=== PATIENT | male | born 1955 | race Caucasian/White ===

== ENCOUNTER 2016-03-20 17:14 | Emergency (ER) | payer BC ==
[2016-03-20] MEDS ORDERED: ONDANSETRON HCL/PF 2 MG/ML VIAL IV ONE (18:07)
[2016-03-20] MEDS ORDERED: NORMAL SALINE 1,000 ML IV PRN (18:07)
[2016-03-20] MEDS ORDERED: MORPHINE SULFATE 4 MG/ML SYRG IV ONE (18:07)
--- NOTE | 2016-03-20 18:17 | ERNOTE ---
Lower Extremity HPI - Narrative Date of Service: 03/20/16 - General Lower Extremities Pain: 2nd toe: right Time Seen by Provider: 03/20/16 17:41 Source: patient Exam Limitations: no limitations - Immun/Allergies/Home Medications Immunizations: IMMUNIZATION HX History of Influenza Vaccine No Hx Pneumococcal Vaccination No Allergies/Adverse Reactions: Allergies Allergy/AdvReac Type Severity Reaction Status Date / Time No Known Allergies Allergy Unverified 03/20/16 17:33 Home Medications: HOME MEDICATIONS Hydrocodone/Acetaminophen [Campbell 7.5-325 Tablet] 1 each PO Q6H #20 tablet [Last Taken Unknown] - History of Present Illness Narrative: Patient who was sent here from urgent care [facility] discoloration of the right second toe, he's had this for over one week worsening in the past couple of days. He has had severe pain, and pressure. Denies any fever he is not a smoker nor is he a diabetic. Denies any calf pain chest pain shortness of breath Date (Duration): 03/13/16 Occurred: last week Review of Systems - Review of Systems Constitutional: Present: no symptoms reported. Absent: fever, chills, diaphoresis Respiratory: Present: no symptoms reported. Absent: shortness of breath, cough , orthopnea, wheezing Cardiology: Absent: chest pain, palpitations, syncope, edema Gastrointestinal/Abdominal: Absent: vomiting, diarrhea, constipation, abdominal pain Musculoskeletal: Absent: back pain, muscle stiffness, neck pain All Other Systems: All systems neg except as marked - Patient's Past Medical History Patient History - Medical: No pertinent hx Patient History - Cardiac/Respiratory: No pertinent hx Patient History - Cancer: No Hx of Cancer Patient History - Other: None - Social History Living Situations: home Smoking Status: Current every day smoker Drug Use: none - Immunizations Hx Pneumococcal Vaccination: No History of Influenza Vaccine: No Physical Exam - Physical Exam General Appearance: Present: wd/wn, alert, no apparent distress Respiratory: Present: no respiratory distress Cardiovascular/Chest: Present: regular rate, rhythm Extremity Exam: Present: other - right second toe distal to there is bluish discoloration with decreased sensation, tenderness just inferiorly to the discoloration ED Progress - Vital Signs Patient's Vital Signs:: I have reviewed the patient's vital signs. Vital Signs: Vital Signs 03/20/16 17:27 Temperature 36.7 C Pulse Rate 74 Respiratory 12 Rate Blood Pressure 160/110 O2 Sat by Pulse 95 Oximetry - X-Ray X-Ray #1 X-Ray: foot Interpretation: Reviewed by me X-ray Comments: right foot no acute changes. - Progress/Reassessment Chief Complaint: Foot Injury/Pain Progress:: Improved Progress Note-Subjective: 03/20/16 20:[address] Vázquez she is going to be out of the office and suggested if we can get this patient into either orthopedics or vascular surgery. Discussed the case with Dr. Spann as well , he be happy to see the patient on Sunday and also feels positive vascular surgery to be a good way to go. Case with Dr. Lang, she is vascular surgery from [place], she would be happy to see the patient tomorrow, the would have to call their office at [facility] the number was provided. Feels this could be a vascular issue and agreed with a blood thinner, either with xarelto or consideration would be then stepped down to Plavix or aspirin. Will follow up with the consultants as stated, returning back to ER with any changes or worsening symptoms 03/21/16 08:12 Departure Clinical Impression: Peripheral vascular disease, Embolic disease of toe - Departure Disposition: Home Follow Up Needed Instructions: Peripheral Vascular Disease, [id number], Form - Excuse from Work, School, or Physical Activity Additional Instructions: Follow up with , Vascular surgeon of [facility]. Address [address] phone number [phone] Prescriptions: Hydrocodone/Acetaminophen [Campbell 7.5-325 Tablet] 1 each PO Q6H #20 tablet
[2016-03-20 18:38] LABS: Hematocrit 52.3 % (42.0-52.0); Hemoglobin 17.4 gm/dL (13.5-18.0); Mean Corpuscular Hemoglobin 30.3 pg (27-31); Mean Corpuscular Hgb Conc 33.3 g/dl (32-36); Mean Platelet Volume 8.9 fl (6.0-9.5); Neutrophil # 5.5 K/mm3 (1.3-6.0); Neutrophil % 68.7 % (42-75.0); Platelet Count 693 K/mm3 (150-450); Red Blood Count 5.75 M/mm3 (4.7-6.0); Red Cell Distribution Width 13.9 % (11.5-14.0); White Blood Count 8.1 K/mm3 (4.0-10.5)
[2016-03-20] MEDS ORDERED: MORPHINE SULFATE 4 MG/ML SYRG ONE (18:39)
[2016-03-20] MEDS ORDERED: ONDANSETRON HCL/PF 2 MG/ML VIAL ONE (18:39)
[2016-03-20 18:53] LABS: Anion Gap 7.5 mmol/L (6.8-13.8); BUN/Creatinine Ratio 14.7 (9.0-21.6); Bilirubin, Total 0.5 mg/dL (0.0-1.1); CRP 0.2 mg/dL (0.0-0.9); Ca. Corrected For Albumin 8.5 mg/dL (8.4-10.2); Calcium * 8.8 mg/dL (7.9-10.9); Potassium 4.5 mmol/L (3.4-4.6); Total Protein 7.5 gm/dL (6.2-8.2)
[2016-03-20] MEDS ORDERED: HYDROcodone/ACETAMINOPHEN 1 EACH TABLET PO ONE ×2 (20:21→20:42)
[2016-03-20] MEDS ORDERED: HYDROmorphone HCL 1 MG/ML DISP.SYRIN IV ONE (20:22)
[2016-03-20 20:37] LABS: Prothrombin Time (Patient) 10.2 Seconds (9.4-11.4)
[2016-03-20] MEDS ORDERED: HYDROmorphone HCL 1 MG/ML DISP.SYRIN ONE (20:46)
[2016-03-20] MEDS ORDERED: HYDROcodone/ACETAMINOPHEN 1 EACH TABLET ONE ×2 (20:46→21:08)
[2016-03-20 20:49] LABS: INR 0.98 INR (0.90-1.10); Partial Thrombolplastin Time 32.8 Seconds (24-32)
[2016-03-20] MEDS ORDERED: RIVAROXABAN 15 MG TABLET PO SCH (21:00)
[2016-03-20] MEDS ORDERED: DABIGATRAN ETEXILATE MESYLATE 150 MG CAPSULE PO ONE (21:45)
[2016-03-21 00:29] VITALS: BP 125/80
[2016-03-26 20:34] LABS: Protein C Activity 127 % normal (70-180); Protein C Antigen 107 % normal (70-140)
== END 2016-03-20 22:00 | disposition home or self-care (01) ==
LOC: ER 17:14
DX: I73.9 Peripheral vascular disease, unspecified (principal); I74.3 Embolism and thrombosis of arteries of the lower extremities; F17.210 Nicotine dependence, cigarettes, uncomplicated